=== PATIENT | male | born 1975 | race Caucasian/White ===

== ENCOUNTER 2016-11-08 00:42 | Emergency (ER) | payer MEDICAID ==
--- NOTE | ~2016-11-08 | EKG ---
PATIENT: KINGS MENENDEZ UNIT #: [id number] Ventricular Rate: 74 BPM Atrial Rate: 74 BPM P-R Interval: 150 ms QRS Duration: 98 ms Q-T Interval: 396 ms QTC Calculation(Bezet): 439 ms P [place]: 36 degrees Calculated R [place]: 86 degrees Calculated T [place]: 66 degrees Diagnosis Line: Normal sinus rhythm Diagnosis Line: Normal ECG Diagnosis Line: No previous ECGs available Diagnosis Line: Confirmed by CORRINA MOODY MD ([id number]) on Diagnosis Line: 11/10/2016 11:03:24 AM INTERPRETING MD: HEIDY VELASQUEZ
[2016-11-08] MEDS ORDERED: FLEXERIL10 MG PO (00:58)
[2016-11-08] MEDS ORDERED: NEURONTIN PO (00:59)
[2016-11-08] MEDS ORDERED: IBUPROFEN PO (00:59)
[2016-11-08 01:37] LABS: BASOPHIL# 0.1 X10e3 (0-0.3); BASOPHIL% 1.3 % (0-2.5); EOSINOPHIL# 0.2 X10e3 (0-0.7); EOSINOPHIL% 1.8 % (0.0-7.0); HEMOGLOBIN 14.8 gm/dL (13.0-16.0); LYMPHOCYTE# 2.7 X10e3 (1.0-3.5); LYMPHOCYTE% 25.6 % (17.0-45.0); MEAN CELL VOLUME 89.9 FL (83-96); MEAN CORPUSCULAR HGB CONC 34.5 g/dL (30-36); MEAN PLATELET VOLUME 7.5 FL (6.5-11.5); MONOCYTE# 0.7 X10e3 (0-1.0); MONOCYTE% 6.7 % (3.0-12.0); NEUTROPHIL# 6.7 X10e3 (1.5-7.1); NEUTROPHIL% 64.6 % (40-75); PLATELET COUNT 328 X10e3 (140-420); RED BLOOD COUNT 4.78 X10e (3.90-5.60); RED CELL DISTRIBUTION WIDTH 13.6 % (11.0-15.5); WHITE BLOOD COUNT 10.4 X10e3 (4.0-10.5)
[2016-11-08 01:38] LABS: DIFF IND NO
[2016-11-08 01:51] LABS: POC - CKMB 1.2 ng/mL (0.0-7.9); POC - TROPONIN <0.05 ng/mL (<=0.05)
[2016-11-08 01:57] LABS: ALKALINE PHOSPHATASE 120 U/L (32-92); ALT (SGPT) 48 U/L (10-40); AMYLASE 21 U/L (0-46); AST (SGOT) 25 U/L (10-42); BILIRUBIN, DIRECT <0.1 mg/dL (0.0-0.2); BILIRUBIN,INDIRECT 0.2 mg/dL (0.0-0.9); BILIRUBIN,TOTAL 0.3 mg/dL (0.2-2.0); BLOOD UREA NITROGEN 20 mg/dL (9-23); BUN/CREATININE RATIO 15.38; CALCIUM SERUM 9.2 mg/dL (8.4-10.2); CARBON DIOXIDE 27 mmol/L (22-31); CHLORIDE 107 mmol/L (100-111); CREATININE SERUM 1.3 mg/dL (0.6-1.4); GLOM FILT RATE Estimated 67.8 mL/min (>60); GLUCOSE FASTING 118 mg/dL (70-110); LIPASE 29 U/L (22-51); POTASSIUM 3.8 mmol/L (3.5-5.1); PROTEIN TOTAL SERUM 7.6 g/dL (6.0-8.3); SODIUM 140 mmol/L (135-145)
== END 2016-11-08 02:32 | disposition home or self-care (01) ==
LOC: SED 00:42
PROVIDERS: Emergency Medicine
DX: R10.9 Unspecified abdominal pain (principal); F17.200 Nicotine dependence, unspecified, uncomplicated
CPT/HCPCS: 36415; 80048; 80076; 82150; 82553; 83690; 84484; 85025; 93005; 96374; 96375; 99284; J2270; J2405